=== PATIENT | female | born 1980 | race Caucasian/White ===

== ENCOUNTER 2016-07-17 01:07 | Emergency (ER) | payer SELFPAY ==
[~2016-07-17] VITALS: Ht 172.7 cm; Wt 53.0 kg
[2016-07-17 01:09] VITALS: Ht 172.7 cm; Wt 53.0 kg
[2016-07-18] MEDS ORDERED: AMOX1TAB10 PO (23:36)
[2016-07-18] MEDS ORDERED: CLIN-73 PO (23:36)
[2016-07-18] MEDS ORDERED: NAPR-260 PO (23:37)
[2016-07-18] MEDS ORDERED: PRED20TA PO (23:37)
== END 2016-07-17 04:20 | disposition left against medical advice (07) ==
LOC: FTE 01:07
DX: Z53.21 Procedure and treatment not carried out due to patient leaving prior to being seen by health care provider (principal)

== ENCOUNTER 2016-07-18 19:30 | Emergency (ER) | payer OTHER ==
[~2016-07-18] VITALS: Ht 172.7 cm; Wt 52.0 kg
[2016-07-18 19:50] VITALS: Ht 172.7 cm; Wt 52.0 kg
--- NOTE | 2016-07-18 20:44 | EN ---
Date/Time of Note Date/Time of Note DATE: 07/18/16 TIME: 20:43 ER Progress Note Medical screening exam performed for the patient. Patient complaining of sore throat, dysphagia, and fever times more than 1 week. Patient also has trismus, suspicious for peritonsillar abscess. Patient is sent to ED to for further evaluation. DHIRAJ ALLISON NP Jul 18, 2016 20:44
[2016-07-18] MEDS ORDERED: SOD CHLORIDE 0.9% 1,000 ML IV ONE (22:00)
[2016-07-18] MEDS ORDERED: DICLOFENAC SODIUM 37.5 MG/ML VIAL IV STA (22:10)
--- NOTE | 2016-07-18 22:13 | ERD ---
ER Documentation Chief Complaint Date/Time DATE: 07/18/16 TIME: 22:10 Chief Complaint SWOLLEN TONSILS X 1.5 WKS, WORSE TODAY. LAST IBUPROFEN X 4 HRS AGO. HPI Patient is a 35-year-old female who presents to the ED with sore throat 1 week. She states that she has difficulty swallowing. She states that she does not have difficulty speaking or breathing. However she states that her voice is different due to the pain and swelling. She states that her tonsils are swollen. She also states that she had a 102 fever 2 days ago. Denies fevers today. She is having a hard time taking medication as she is having difficulty swallowing. She denies headache or dizziness. She denies runny nose. She denies abdominal pain, nausea, vomiting or diarrhea. She states that she put some cocaine in her throat which helped with the pain. She also states that she drank something that had heroin in it which helped with her pain and she was able to sleep. She states that she is unable to tolerate p.o. fluids due to the pain and has been losing some weight. She denies chest pain, shortness of breath or difficulty breathing. She denies leg pain or swelling. She also states that she has a history of MRSA infection. And states that she has had outbreaks recently. ROS All systems reviewed and are negative except as per history of present illness. Medications Home Meds Active Scripts Naproxen* (Naprosyn*) 500 Mg Tablet, 500 MG PO BID Y for PAIN AND/OR INFLAMMATION, #30 TAB Prov:MAISHA DICKENS PA-C 07/18/16 Prednisone* (Prednisone*) 20 Mg Tab, 40 MG PO DAILY for 5 Days, TAB Prov:MAISHA DICKENS PA-C 07/18/16 Clindamycin Hcl* (Clindamycin Hcl*) 300 Mg Capsule, 300 MG PO QID for 7 Days, CAP Prov:MAISHA DICKENS PA-C 07/18/16 Amoxicillin/Potassium Clav (Amox-Clav 875-125 mg Tablet) 875-125 mg Tab, 1 TAB PO BID for 7 Days, #14 TAB Prov:MAISHA DICKENS PA-C 07/18/16 Allergies Allergies: Coded Allergies: Codeine (Verified Allergy, [facility], 05/02/13) PMhx/Soc History of Surgery: Yes (CS x5) Anesthesia Reaction: No Hx Neurological Disorder: No Hx Respiratory Disorders: No Hx Cardiac Disorders: No Hx Psychiatric Problems: No Hx Miscellaneous Medical Probl: Yes ("dental plate", MRSA infections) Hx Alcohol Use: No Hx Substance Use: No Hx Tobacco Use: No Smoking Status: Current every day smoker (2 cigs/day) Physical Exam Vitals Vital Signs Date Time Temp Pulse Resp B/P Pulse Ox O2 Delivery O2 Flow Rate FiO2 07/18/16 19:50 99.4 133 19 130/93 99 Physical Exam GENERAL: Well-developed, well-nourished female. Appears in mild distress HEAD: Normocephalic, atraumatic. EYES: Pupils are equally reactive bilaterally. EOMs grossly intact. No conjunctival erythema. ENT: Moist mucous membranes. No uvula deviation. . No exudates. trismus. exudates on the right tonsil. no kissing tonsils. enlarged tonsils R> L. halitosis NECK: Supple. No lymphadenopathy or thyromegaly. No meningismus. negative kernig. negative brudinski. LUNG: Clear to auscultation bilaterally. No rhonchi, wheezing, rales or coarse breath sounds. HEART: Regular rate and rhythm. No murmurs, rubs or gallops. Extremities: Equal pulses bilaterally. No peripheral clubbing, cyanosis or edema. No unilateral leg swelling. NEUROLOGIC: Alert and oriented. Moving all four extremities. 5/5 strength in all extremities. Normal speech. Steady gait. SKIN: Normal color. Warm and dry. No rashes or lesions. Capillary refill < 2 seconds Result Diagram: 07/18/16215807/18/162158 Results 24 hrs Laboratory Tests Test 07/18/16 21:59 Alanine Aminotransferase (ALT/SGPT) 75IU/L Albumin 4.1g/dl Albumin/Globulin Ratio 1.17 Alkaline Phosphatase 156IU/L Anion Gap 16 Aspartate Amino Transf (AST/SGOT) 35IU/L Basophils # 0.110^3/ul Basophils % 0.4% Blood Urea Nitrogen 13mg/dl Calcium Level 9.3mg/dl Carbon Dioxide Level 32mmol/L Chloride Level 96mmol/L Creatinine 0.58mg/dl Direct Bilirubin 0.00mg/dl Eosinophils # 0.410^3/ul Eosinophils % 2.0% Globulin 3.50g/dl Glucose Level 95mg/dl Hematocrit 42.0% Hemoglobin 14.3g/dl Indirect Bilirubin 0.1mg/dl Lipase 15U/L Lymphocytes # 2.610^3/ul Lymphocytes % 14.7% Mean Corpuscular Hemoglobin 31.2pg Mean Corpuscular Hemoglobin Concent 34.1g/dl Mean Corpuscular Volume 91.7fl Mean Platelet Volume 7.5fl Monocytes # 0.110^3/ul Monocytes % 0.6% Neutrophils # 14.510^3/ul Neutrophils % 82.3% Nucleated Red Blood Cells # 0.010^3/ul Nucleated Red Blood Cells % 0.0/100WBC Platelet Count 91084^3/UL Potassium Level 4.0mmol/L Red Blood Count 4.5810^6/ul Red Cell Distribution Width 13.5% Sodium Level 140mmol/L Total Bilirubin 0.1mg/dl Total Protein 7.6g/dl White Blood Count 17.710^3/ul Current Medications Medications (Trade) Dose Ordered Sig/Aniceto Route PRN Reason Start Time Stop Time Status Last Admin Dose Admin Sodium Chloride (NS) 1,000 ml @ 1,000 mls/hr Q1H ONCE IV 07/18/16 22:00 07/18/16 22:59 DC 07/18/16 21:52 Diclofenac Sodium (Dyloject) 37.5 mg ONCE STAT IV 07/18/16 22:10 07/18/16 22:11 DC 07/18/16 22:14 IV Flush 10 ml 10 ml STK-MED ONCE .ROUTE 07/18/16 22:46 07/18/16 22:47 DC 07/18/16 23:01 Sodium Chloride (NS) 100 ml @ ud STK-MED ONCE .ROUTE 07/18/16 22:46 07/18/16 22:47 DC 07/18/16 23:01 Iohexol (Omnipaque 300mg/ ml) 150 ml STK-MED ONCE .ROUTE 07/18/16 22:46 07/18/16 22:47 DC 07/18/16 23:01 Ceftriaxone Sodium (Rocephin) 2 gm ONCE ONCE IVPB 07/18/16 23:30 07/18/16 23:31 Cancel Dexamethasone (Decadron) 10 mg ONCE ONCE IV 07/18/16 23:30 07/18/16 23:31 DC 07/19/16 00:18 Ketorolac Tromethamine 30 mg 30 mg ONCE STAT IV 07/18/16 23:29 07/18/16 23:31 DC 07/19/16 00:18 Ceftriaxone Sodium (Rocephin) 50 ml @ 100 mls/hr ONCE ONCE IVPB 07/18/16 23:57 07/19/16 00:26 DC 07/19/16 00:18 Procedures/MDM ER COURSE: I kept the patient and/or family informed of laboratory and diagnostic imaging results throughout the emergency room course. EKG, MONITORS, & DIAGNOSTIC IMAGING: [place] [id number] Radiology Main Line: [phone] DIAGNOSTIC IMAGING REPORT Patient: ANDREZ TAVERAS : 1980 Age: 35 Sex: F MR #: [id number] DOS: 07/18/162135 Ordering MD: MAISHA DICKENS PA-C Location: [facility] Room/Bed: PROCEDURE: CT Neck with contrast CLINICAL INDICATION: Sore throat TECHNIQUE: CT of the neck was performed following the intravenous administration of 80 cc Omnipaque 300 IV Contrast. Axial images were obtained through the neck with multiplanar reformatted images generated from the axial acquired data. The administered radiation dose was CTDI vol = 8.3 mGy, DLP = 213 mGy-cm. COMPARISON: No pertinent prior examinations were submitted for comparison. FINDINGS: Skull/Brain: The visualized portions of the brain are grossly unremarkable.The visualized orbits are unremarkable.The visualized paranasal sinuses are well aerated.The bilateral mastoid air cells are within normal limits. Parotid glands: Unremarkable Submandibular glands: Unremarkable Thyroid gland: Unremarkable Vasculature: Unremarkable Lymph nodes: There is mild enlargement of the right greater than left submandibular and level II/III jugular chain lymph nodes. Aerodigestive tract: There is some mild enlargement of the left palatine tonsil. There is marked enlargement of the right palatine muscle with a 2.9 x 2.5 cm area of central low attenuation. There are inflammatory changes extending into the right parapharyngeal space. There is mucosal thickening extending into the nasopharynx and slightly into the hypopharynx. No subglottic abnormalities are seen. Other: The lung apices are unremarkable. Osseous structures: No destructive lytic or blastic osseous lesion is identified. IMPRESSION: Enlarged right palatine tonsil with central low attenuation compatible with abscess or phlegmon. Mild right greater than left cervical and submandibular adenopathy. RPTAT: HIKT .Yaw Mahan MD, MD Date Time Electronically viewed and signed by .Yaw Mahan MD, MD on 07/18/2016 23:16 .T/ CC: MAISHA DICKENS PA-C MEDICATIONS: IV fluids, Toradol, Decadron, Rocephin and I will check were given to the patient in the ED. Patient stated improvement in symptoms. LAB INTERPRETATION: CBC showed elevated white count of 17.7 with a shift of 82.3 CMP showed no evidence of electrolyte abnormalities, severe acidosis, alkalosis , renal failure, or liver disease. Lipase showed no evidence of acute pancreatitis. Urine test was negative. Strep positive MEDICAL DECISION MAKING: This is a 35-year-old female who presents with throat pain and enlarged tonsils. Vital signs were reviewed. Patient is afebrile. Patient is not hypoxic. Patient has an enlarged right palatine tonsil compatible with an abscess. Patient likely has a peritonsillar abscess. I have consulted with who has reviewed her labs and imaging studies. Patient will be treated outpatient knee with medications and antibiotics. Low suspicion for pneumonia, PE, pneumothorax, ACS, epiglottitis, obstruction, TB, pertussis, meningitis, sepsis. Low suspicion for mononucleosis, dental abscess. Patient' s symptoms have been stable in the ED and appropriate for outpatient work. No evidence of impending airway compromise or meningitis. Low suspicion for obstruction and patient does not have respiratory distress. Patient is speaking in full sentences. DISCHARGE: At this time, patient is stable for discharge and outpatient management with no new complaints during the ER course. Patient was sent home with Augmentin, clindamycin, prednisone, Motrin. Patient will be discharged home with instructions to recheck for new or worsening symptoms such as fever, nausea, weakness, LOC and to follow up with primary care in the next 1-2 days. Patient was advised to return to the ER for any new or worsening symptoms. Plan was discussed and patient and/or family understands and agrees. Home instructions were given. Departure Diagnosis: Primary Impression: Peritonsillar abscess Condition: Stable MAISHA DICKENS PA-C Jul 18, 2016 22:13
[2016-07-18 22:17] LABS: BASOPHIL # 0.1 10^3/ul (0.0-0.1); BASOPHILS % 0.4 % (0.0-2.0); EOSINOPHILS # 0.4 10^3/ul (0.0-0.5); HEMOGLOBIN 14.3 g/dl (12.0-16.0); LYMPHOCYTES # 2.6 10^3/ul (0.8-2.9); LYMPHOCYTES % 14.7 % (15.0-51.0); MEAN CORPUSCULAR HEMOGLOBIN 31.2 pg (29.0-33.0); MEAN CORPUSCULAR HGB CONC 34.1 g/dl (32.0-37.0); MEAN CORPUSCULAR VOLUME 91.7 fl (82.0-101.0); MEAN PLATELET VOLUME 7.5 fl (7.4-10.4); MONOCYTE # 0.1 10^3/ul (0.3-0.9); MONOCYTES % 0.6 % (0.0-11.0); NEUTROPHIL # 14.5 10^3/ul (1.6-7.5); NEUTROPHILS % 82.3 % (39.0-77.0); PLATELET COUNT 517 10^3/UL (140-440); RED BLOOD COUNT 4.58 10^6/ul (4.20-5.40); RED CELL DISTRIBUTION WIDTH 13.5 % (11.5-14.5); UNCORRECTED WBC 17.7 10^3/ul (4.8-10.8); WHITE BLOOD COUNT 17.7 10^3/ul (4.8-10.8)
[2016-07-18 22:19] LABS: CONDITION 1
[2016-07-18 22:22] LABS: ALBUMIN 4.1 g/dl (3.3-4.9)
[2016-07-18 22:25] LABS: ALBUMIN/GLOBULIN RATIO 1.17; BILIRUBIN,INDIRECT 0.1 mg/dl (0-1.1); BILIRUBIN,TOTAL 0.1 mg/dl (0.2-1.3); CREATININE 0.58 mg/dl (0.44-1.00); TOTAL PROTEIN 7.6 g/dl (6.1-8.1)
[2016-07-18 22:26] LABS: CALCIUM 9.3 mg/dl (8.4-10.2)
[2016-07-18] MEDS ORDERED: SOD CHLORIDE 0.9% 100 ML ONE (22:46)
[2016-07-18] MEDS ORDERED: IOHEXOL 300MG/ML 150 ML BTL ONE (22:46)
--- NOTE | 2016-07-18 23:16 | RADRPT ---
PROCEDURE: CT Neck with contrast CLINICAL INDICATION: Sore throat TECHNIQUE: CT of the neck was performed following the intravenous administration of 80 cc Omnipaqu e 300 IV Contrast. Axial images were obtained through the neck with multiplanar reformatted images g enerated from the axial acquired data. The administered radiation dose was CTDI vol = 8.3 mGy, DLP = 213 mGy-cm. COMPARISON: No pertinent prior examinations were submitted for comparison. FINDINGS: Skull/Brain: The visualized portions of the brain are grossly unremarkable.The visualized orbits are unremarkable.The visualized paranasal sinuses are well aerated.The bilateral mastoid air cells are within normal limits. Parotid glands: Unremarkable Submandibular glands: Unremarkable Thyroid gland: Unremarkable Vasculature: Unremarkable Lymph nodes: There is mild enlargement of the right greater than left submandibular and level II/III jugular chain lymph nodes. Aerodigestive tract: There is some mild enlargement of the left palatine tonsil. There is marked en largement of the right palatine muscle with a 2.9 x 2.5 cm area of central low attenuation. There a re inflammatory changes extending into the right parapharyngeal space. There is mucosal thickening extending into the nasopharynx and slightly into the hypopharynx. No subglottic abnormalities are s een. Other: The lung apices are unremarkable. Osseous structures: No destructive lytic or blastic osseous lesion is identified. IMPRESSION: Enlarged right palatine tonsil with central low attenuation compatible with abscess or phlegmon. Mild right greater than left cervical and submandibular adenopathy. RPTAT: HIKT .Yaw Mahan MD, Date Time Electronically viewed and signed by .Yaw Mahan MD, MD on 07/18/2016 23:16 .T/
[2016-07-18] MEDS ORDERED: KETOROLAC 30 MG INJ IV STA (23:29)
[2016-07-18] MEDS ORDERED: CEFTRIAXONE 2 GM INJ IVPB ONE (23:30)
[2016-07-18] MEDS ORDERED: DEXAMETHASONE 10 MG/ML 1 ML INJ IV ONE (23:30)
[2016-07-18] MEDS ORDERED: CLIN-73 PO (23:36)
[2016-07-18] MEDS ORDERED: AMOX1TAB10 PO (23:36)
[2016-07-18] MEDS ORDERED: PRED20TA PO (23:37)
[2016-07-18] MEDS ORDERED: NAPR-260 PO (23:37)
[2016-07-18] MEDS ORDERED: CEFTRIAXONE 2 GM/50 ML (PMX) 50 ML IVPB ONE (23:57)
== END 2016-07-19 01:08 | disposition home or self-care (01) ==
LOC: FTE 19:30
DX: J36 Peritonsillar abscess (principal); F17.210 Nicotine dependence, cigarettes, uncomplicated
CPT/HCPCS: 36415; 70491; 80053; 83690; 85025; 87880; 96374; 96375; J0696; J1100; J1885; J7030; Q9967; Z7502; Z7610

== ENCOUNTER 2017-03-29 03:25 | Emergency (ER) | payer OTHER ==
[~2017-03-29] VITALS: Ht 162.6 cm; Wt 53.5 kg
[~2017-03-29 03:25] MED LIST: AMOX1TAB10 PO; CLIN-73 PO; NAPR-260 PO; PRED20TA PO
[2017-03-29 03:27] VITALS: Ht 162.6 cm; Wt 53.5 kg
[2017-03-29] MEDS ORDERED: SOD CHLORIDE 0.9% 1,000 ML IV STA (04:16)
[2017-03-29 04:39] LABS: BASOPHILS % 0.3 % (0.0-2.0); EOSINOPHILS # 0.2 10^3/ul (0.0-0.5); EOSINOPHILS % 2.1 % (0.0-7.0); HEMATOCRIT 41.8 % (37.0-47.0); HEMOGLOBIN 14.3 g/dl (12.0-16.0); LYMPHOCYTES # 2.1 10^3/ul (0.8-2.9); LYMPHOCYTES % 18.2 % (15.0-51.0); MEAN CORPUSCULAR HEMOGLOBIN 31.3 pg (29.0-33.0); MEAN CORPUSCULAR HGB CONC 34.2 g/dl (32.0-37.0); MEAN CORPUSCULAR VOLUME 91.5 fl (82.0-101.0); MEAN PLATELET VOLUME 9.8 fl (7.4-10.4); MONOCYTE # 0.8 10^3/ul (0.3-0.9); MONOCYTES % 6.9 % (0.0-11.0); NEUTROPHIL # 8.4 10^3/ul (1.6-7.5); NEUTROPHILS % 72.2 % (39.0-77.0); PLATELET COUNT 287 10^3/UL (140-415); RED BLOOD COUNT 4.57 10^6/ul (4.20-5.40); RED CELL DISTRIBUTION WIDTH 12.5 % (11.5-14.5); WHITE BLOOD COUNT 11.6 10^3/ul (4.8-10.8)
--- NOTE | 2017-03-29 04:41 | ERD ---
ER Documentation Chief Complaint Date/Time DATE: 03/29/17 TIME: 04:36 Chief Complaint bite on forehead (in between eyebrows) 4 days ago; w/ pain, swelling (JELANI ANDERSON NP) HPI 36-year-old female presents here to emergency department for redness and swelling in the forehead, patient states that she got bit by an insect, no history of an swollen, it has been going on for the last 4 days. Patient describes the pain as throbbing pain, 6/10 scale, as was upon touching the area. Patient did not take any medications to help with symptoms. Patient denies any fever or chills. Patient denies any medications that she took at home to help with symptoms. Patient denies any vision changes. Patient has limitation of movement of the eye muscles. (JELANI ANDERSON NP) ROS All systems reviewed and are negative except as per history of present illness. (JELANI ANDERSON NP) Medications Home Meds Active Scripts Ibuprofen* (Motrin*) 600 Mg Tab, 600 MG PO Q6H Y for PAIN AND OR ELEVATED TEMP, #30 TAB Prov:JELANI ANDERSON NP 03/29/17 Cephalexin* (Keflex*) 500 Mg Capsule, 500 MG PO QID for 10 Days, CAP Prov:JELANI ANDERSON NP 03/29/17 Sulfamethoxazole/Trimethoprim* (Bactrim Ds* Tablet) 1 Each Tablet, 1 TAB PO BID , #20 TAB Prov:JELANI ANDERSON NP 03/29/17 Naproxen* (Naprosyn*) 500 Mg Tablet, 500 MG PO BID Y for PAIN AND/OR INFLAMMATION, #30 TAB Prov:MAISHA DICKENS PA-C 07/18/16 Prednisone* (Prednisone*) 20 Mg Tab, 40 MG PO DAILY for 5 Days, TAB Prov:MAISHA DICKENS PA-C 07/18/16 Clindamycin Hcl* (Clindamycin Hcl*) 300 Mg Capsule, 300 MG PO QID for 7 Days, CAP Prov:MAISHA DICKENS PA-C 07/18/16 Amoxicillin/Potassium Clav (Amox-Clav 875-125 mg Tablet) 875-125 mg Tab, 1 TAB PO BID for 7 Days, #14 TAB Prov:MANIDNERMAISHA CALDWELL 07/18/16 Allergies Allergies: Coded Allergies: Codeine (Verified Allergy, [facility], 05/02/13) PMhx/Soc History of Surgery: Yes (CS x5) Anesthesia Reaction: No Hx Neurological Disorder: No Hx Respiratory Disorders: No Hx Cardiac Disorders: No Hx Psychiatric Problems: No Hx Miscellaneous Medical Probl: Yes ("dental plate", MRSA infections) Hx Alcohol Use: No Hx Substance Use: No Hx Tobacco Use: No Smoking Status: Never smoker (JELANI ANDERSON NP) FmHx Family History: No coronary disease, No diabetes, No other (JELANI ANDERSON NP) Physical Exam Vitals Vital Signs Date Time Temp Pulse Resp B/P Pulse Ox O2 Delivery O2 Flow Rate FiO2 03/29/17 03:27 98.2 108 20 155/89 100 (SHARONDA MARES PA-C) Physical Exam GENERAL: The patient is well developed and appropriate for usual state of health, in no apparent distress. CHEST: Clear to auscultation bilaterally. There are no rales, wheezes or rhonchi. HEART: Regular rate and rhythm. No murmurs, clicks, rubs or gallops. No S3 or S4. ABDOMEN: Soft, nontender and nondistended. Good bowel sounds. No rebound or guarding. No gross peritonitis. No gross organomegaly or masses. No Bruno sign or McBurney point tenderness. BACK: No midline or flank tenderness. EXTREMITIES: Equal pulses bilaterally. There is no peripheral clubbing, cyanosis or edema. No focal swelling or erythema. Full range of motion. Grossly neurovascularly intact. NEURO: Alert and oriented. Cranial nerves 2-12 intact. Motor strength in all 4 extremities with 5/5 strength. Sensation grossly intact. Normal speech and gait. SKIN: 3 centimeter diameter erythematous indurated area in the forehead, tender on palpation. Warm to touch. There is no apparent rash or petechia. The skin is warm and dry. HEMATOLOGIC AND LYMPHATIC: There is no evidence of excessive bruising or lymphedema. No gross cervical, axillary, or inguinal lymphadenopathy. (JELANI ANDERSON NP) Result Diagram: 03/29/17 0424 03/29/17 0424 Results 24 hrs Laboratory Tests Test 03/29/17 04:24 White Blood Count 11.610^3/ul Red Blood Count 4.5710^6/ul Hemoglobin 14.3g/dl Hematocrit 41.8% Mean Corpuscular Volume 91.5fl Mean Corpuscular Hemoglobin 31.3pg Mean Corpuscular Hemoglobin Concent 34.2g/dl Red Cell Distribution Width 12.5% Platelet Count 15672^3/UL Mean Platelet Volume 9.8fl Neutrophils % 72.2% Lymphocytes % 18.2% Monocytes % 6.9% Eosinophils % 2.1% Basophils % 0.3% Nucleated Red Blood Cells % 0.0/100WBC Neutrophils # 8.410^3/ul Lymphocytes # 2.110^3/ul Monocytes # 0.810^3/ul Eosinophils # 0.210^3/ul Basophils # 0.010^3/ul Nucleated Red Blood Cells # 0.010^3/ul Sodium Level 138mmol/L Potassium Level 3.6mmol/L Chloride Level 100mmol/L Carbon Dioxide Level 30mmol/L Anion Gap 12 Blood Urea Nitrogen 14mg/dl Creatinine 0.70mg/dl Glucose Level 101mg/dl Calcium Level 9.5mg/dl Total Bilirubin 0.1mg/dl Direct Bilirubin 0.00mg/dl Indirect Bilirubin 0.1mg/dl Aspartate Amino Transf (AST/SGOT) 22IU/L Alanine Aminotransferase (ALT/SGPT) 42IU/L Alkaline Phosphatase 92IU/L Total Protein 7.7g/dl Albumin 4.6g/dl Globulin 3.10g/dl Albumin/Globulin Ratio 1.48 Current Medications Medications (Trade) Dose Ordered Sig/Aniceto Route PRN Reason Start Time Stop Time Status Last Admin Dose Admin Sodium Chloride 1,000 ml @ 1,000 mls/hr Q1H STAT IV 03/29/17 04:16 03/29/17 05:15 DC 03/29/17 04:22 Vancomycin HCl 250 ml @ 125 mls/hr ONCE IVPB 03/29/17 06:00 03/29/17 07:59 03/29/17 06:10 Sodium Chloride (NS) 100 ml @ ud STK-MED ONCE .ROUTE 03/29/17 05:48 03/29/17 05:49 DC 03/29/17 06:04 Iohexol (Omnipaque 300mg/ ml) 150 ml STK-MED ONCE .ROUTE 03/29/17 05:48 03/29/17 05:49 DC 03/29/17 06:04 Morphine Sulfate (morphine) 4 mg ONCE STAT IV 03/29/17 06:05 03/29/17 06:06 DC 03/29/17 06:10 (SHARONDA MARES PA-C) Results 24 hrs Normal saline IV bolus was given here in emergency department for rehydration, patient tolerated IV fluids. (JELANI ANDERSON NP) Procedures/MDM PT advised to ffup 2 days for recheck. Patient was advised to emergency department for any worsening symptoms. (JELANI ANDERSON NP) DIAGNOSTIC IMAGING REPORT Patient: ANDREZ TAVERAS : 1980 Age: 36 Sex: F MR #: [id number] DOS: 03/29/17 0418 Ordering MD: JELANI ANDERSON NP Location: [facility] Room/Bed: PROCEDURE: CT face with contrast. CLINICAL INDICATION: Swelling of upper forehead. Insect bite.. TECHNIQUE: CT scan of the brain with contrast was performed on a multidetector high-resolution CT scan. The patient was scanned following the uncomplicated intravenous administration of 100 ml Omnipaque-300. Coronal and sagittal reformatted images were obtained from the axial source images. Standard CT scan of the brain with contrast protocols were performed. The total exam CTDI equals 53.7 a mGy and the total exam DLP equals 1099.17 mGy- cm. One or more of the following dose reduction techniques were used: - Automated exposure control. - Adjustment of the mA and/or kV according to patient size. Use of iterative reconstruction technique. COMPARISON: None. FINDINGS: In the subcutaneous medial right forehead anterior to the right frontal sinus is a 1.0 x 1.2 cm fluid collection with enhancing wall consistent with a small abscess. Note there is no soft tissue gas. In addition there is ill-defined swelling of the right forehead and right periorbital region with mild enhancement suggesting cellulitis. There are no other masses or fluid collections present. There is no evidence of bony erosion. No evidence of fractures. There is minimal mucosal thickening involving both maxillary ethmoid and frontal sinuses. Additionally there is a 1.6 sign mucous retention cyst involving the anterior inferior right maxillary sinus. There are no air-fluid levels within the paranasal sinuses. No evidence of bony erosion or expansion. The globes are symmetrical without evidence of proptosis. No intra or extra coronal fluid collections or masses. The visualized mastoids are unremarkable. Those portions of the brain imaged are unremarkable. IMPRESSION: 1. 1.0 x 1.2 cm fluid collection with enhancing wall involving the subcutaneous right forehead as above consistent with abscess. Additional ill- defined swelling of the right forehead and periorbital regions with mild enhancement suggesting cellulitis. 2. Unremarkable orbits. 3. Chronic sinusitis as above. 4. No CT evidence of osteomyelitis. Er Course: Vancomycin IV given in ED. MDM: I have low suspicion for orbital cellulitis. Patient does not have pain with ocular movements. Patient CT scan does not show signs of orbital cellulitis. This case was discussed with Dr. Dejesus and given patient does not have leukocytosis or concerning finding on exams patient will be discharged with oral antibiotics. Patient was given vancomycin in the ED. I have low suspicion for sepsis. Patient's vital signs are stable and patient is nontoxic- appearing. Patient is discharged with strict ER precautions and recommended to follow-up with primary care within 1-2 days for close evaluation. Patient is told to return to the ER symptoms change or worsen. All questions answered at discharge. (SHARONDA MARES PA-C) Departure Diagnosis: Primary Impression: Facial cellulitis Condition: Stable JELANI ANDERSON NP Mar 29, 2017 04:41 SHARONDA MARES PA-C Mar 29, 2017 07:06
[2017-03-29 04:58] LABS: ALBUMIN 4.6 g/dl (3.3-4.9); ALBUMIN/GLOBULIN RATIO 1.48; BILIRUBIN,INDIRECT 0.1 mg/dl (0-1.1); BILIRUBIN,TOTAL 0.1 mg/dl (0.2-1.3); CALCIUM 9.5 mg/dl (8.4-10.2); CREATININE 0.7 mg/dl (0.44-1.00); POTASSIUM 3.6 mmol/L (3.5-5.1); TOTAL PROTEIN 7.7 g/dl (6.1-8.1)
[2017-03-29] MEDS ORDERED: CEPH-443 PO (05:47)
[2017-03-29] MEDS ORDERED: SULF1TAB31 PO (05:47)
[2017-03-29] MEDS ORDERED: IBUP-1542 PO (05:47)
[2017-03-29] MEDS ORDERED: SOD CHLORIDE 0.9% 100 ML ONE (05:48)
[2017-03-29] MEDS ORDERED: IOHEXOL 300MG/ML 150 ML BTL ONE (05:48)
[2017-03-29] MEDS ORDERED: VANCOMYCIN 1 GM (PMX) 250 ML IVPB SCH (06:00)
[2017-03-29] MEDS ORDERED: morphine 4 MG/ML VIAL IV STA (06:05)
--- NOTE | 2017-03-29 06:24 | RADRPT ---
PROCEDURE: CT face with contrast. CLINICAL INDICATION: Swelling of upper forehead. Insect bite.. TECHNIQUE: CT scan of the brain with contrast was performed on a multidetector high-resolution CT scan. The patient was scanned following the uncomplicated intravenous administration of 100 ml Omni paque-300. Coronal and sagittal reformatted images were obtained from the axial source images. Eliseo dard CT scan of the brain with contrast protocols were performed. The total exam CTDI equals 53.7 a mGy and the total exam DLP equals 1099.17 mGy-cm. One or more of the following dose reduction techniques were used: - Automated exposure control. - Adjustment of the mA and/or kV according to patient size. Use of iterative reconstruction technique. COMPARISON: None. FINDINGS: In the subcutaneous medial right forehead anterior to the right frontal sinus is a 1.0 x 1.2 cm flui d collection with enhancing wall consistent with a small abscess. Note there is no soft tissue gas. In addition there is ill-defined swelling of the right forehead and right periorbital region with mi ld enhancement suggesting cellulitis. There are no other masses or fluid collections present. There is no evidence of bony erosion. No evidence of fractures. There is minimal mucosal thickening involv ing both maxillary ethmoid and frontal sinuses. Additionally there is a 1.6 sign mucous retention [address] involving the anterior inferior right maxillary sinus. There are no air-fluid levels within the p aranasal sinuses. No evidence of bony erosion or expansion. The globes are symmetrical without evide nce of proptosis. No intra or extra coronal fluid collections or masses. The visualized mastoids are unremarkable. Those portions of the brain imaged are unremarkable. IMPRESSION: 1. 1.0 x 1.2 cm fluid collection with enhancing wall involving the subcutaneous right forehead as a don consistent with abscess. Additional ill-defined swelling of the right forehead and periorbital regions with mild enhancement suggesting cellulitis. 2. Unremarkable orbits. 3. Chronic sinusitis as above. 4. No CT evidence of osteomyelitis. RPTAT:AAJJ Physician Pierce Date Time Electronically viewed and signed by Physician Pierce on 03/29/2017 06:23 BM/
== END 2017-03-29 07:06 | disposition home or self-care (01) ==
LOC: FTE 03:25
DX: L03.211 Cellulitis of face (principal)
CPT/HCPCS: 36415; 70486; 80053; 85025; 87040; 96374; 96375; J2270; J3370; J7030; Q9967; Z7502; Z7610

== ENCOUNTER 2017-07-31 07:20 | Emergency (ER) | END 2017-07-31 08:30 | disposition home or self-care (01) ==

== ENCOUNTER 2018-03-02 08:14 | Emergency (ER) | END 2018-03-02 12:39 | disposition home or self-care (01) ==